=== PATIENT | male | born 1985 | race African-American/Black ===

== ENCOUNTER 2021-04-15 11:01 | Outpatient (REF) | payer OTHER, SELFPAY ==
[2021-04-15 11:05] LABS: MANUAL DIFF FLAG NO
[2021-04-15 12:00] LABS: Basophils Absolute Auto 0.1 X10*3/uL (0.0-0.2); Basophils Percent Auto 0.9 % (0-2); Eosinophils Absolute Auto 0.4 X10*3/uL (0.0-0.4); Eosinophils Percent Auto 5.1 % (0-4); Hematocrit 43.5 % (42.0-52.0); Hemoglobin 14.4 g/dl (14.0-18.0); Imm Gran Abs Auto 0.02 X10*3/uL (0.00-0.03); Imm Gran Pct Auto 0.3 % (0.0-0.4); Lymphocytes Absolute Auto 2.8 X10*3/uL (1.2-4.9); Lymphocytes Percent Auto 40.6 % (20-40); Mean Corpuscular HGB Conc 33.1 g/dl (31.0-36.0); Mean Corpuscular Hemoglobin 29.1 pg (27.0-33.0); Mean Corpuscular Volume 88.1 fL (80.0-98.0); Mean Platelet Volume 9.8 fL (9.4-12.4); Monocytes Absolute Auto 0.6 X10*3/uL (0.1-1.2); Monocytes Percent Auto 9.4 % (2-11); Neutrophils Percent Auto 43.7 % (45-73); Platelet Count 237 X10*3/uL (160-400); Red Blood Count 4.94 X10*6/uL (4.60-5.80); Red Cell Distribution Width 13.2 % (11.0-16.0); White Blood Count 6.8 X10*3/uL (4.8-10.8)
[2021-04-15 12:13] LABS: Alanine Aminotransferase 70 U/L (0-40); Albumin Level 4.5 g/dL (3.5-5.0); Alkaline Phosphatase 47 U/L (39-117); Anion Gap 12 (12-20); Appearance Urine CLEAR; Aspartate Amino Transferase 39 U/L (5-37); Bilirubin Total 0.4 mg/dL (0.0-1.0); Blood Urea Nitrogen 13 mg/dL (9-16); Calcium 9.8 mg/dL (8.4-10.2); Carbon Dioxide 27 mmol/L (22-29); Chloride 105 mmol/L (96-108); Cholesterol 246 mg/dL; Color Urine YELLOW; Estimated Glomerular Filt Rate > 60; Glucose Random 183 mg/dL (60-115); Glucose Urine UA NEG (NEG); HDL Cholesterol 45 mg/dL; LDL Cholesterol Calculated 164 mg/dl; Leukocyte Esterase Urine NEG (NEG); Nitrite Urine NEG (NEG); PH 5.5 (5.0-8.0); Potassium 4.4 mmol/L (3.3-5.1); Sodium 140 mmol/L (135-145); Specific Gravity - Urine >= 1.030 (1.005-1.025); Total Protein 7.4 g/dL (6.5-8.0); Triglycerides 188 mg/dL; Urine Blood NEG (NEG); Urine Ketones NEG (NEG); Urine Protein NEG (NEG-TRACE)
[2021-04-15 12:58] LABS: Reflex LDLD? No
== END 2021-04-15 11:02 | disposition home or self-care (01) ==
LOC: HO.LNP 11:01
PROVIDERS: Visit Provider Internal Medicine
DX: Z00.00 Encounter for general adult medical examination without abnormal findings (principal); R03.0 Elevated blood-pressure reading, without diagnosis of hypertension; D72.820 Lymphocytosis (symptomatic)
CPT/HCPCS: 80053; 80061; 81003; 85025

== ENCOUNTER → 2021-04-21 08:17 | Outpatient (BNVA) | payer SELFPAY | PROVIDERS: PCP Internal Medicine | DX: Z11.1 Encounter for screening for respiratory tuberculosis (principal) ==

== ENCOUNTER 2022-09-02 11:37 | Outpatient (REF) | payer SELFPAY ==
[2022-09-02 11:40] LABS: MANUAL DIFF FLAG NO
[2022-09-02 11:49] LABS: Appearance Urine Cloudy; Color Urine Dark Yellow; Glucose Urine UA Negative (Negative); Leukocyte Esterase Urine Negative (Negative); Nitrite Urine Negative (Negative); PH 5.5 (5.0-9.0); Specific Gravity - Urine >= 1.030 (1.005-1.025); UMIC TRIGGER UACC YES; Urine Blood Negative (Negative); Urine Ketones Trace mg/dL (Negative); Urine Protein 30 (1+) mg/dL (Neg-Trace)
[2022-09-02 11:50] LABS: Basophils Absolute Auto 0.1 X10*3/uL (0.0-0.2); Basophils Percent Auto 0.9 % (0-2); Eosinophils Absolute Auto 0.3 X10*3/uL (0.0-0.4); Hematocrit 44.3 % (42.0-52.0); Hemoglobin 14.9 g/dl (14.0-18.0); Imm Gran Abs Auto 0.02 X10*3/uL (0.00-0.03); Imm Gran Pct Auto 0.3 % (0.0-0.4); Lymphocytes Absolute Auto 3.1 X10*3/uL (1.2-4.9); Mean Corpuscular HGB Conc 33.6 g/dl (31.0-36.0); Mean Corpuscular Hemoglobin 29.9 pg (27.0-33.0); Mean Corpuscular Volume 88.8 fL (80.0-98.0); Monocytes Absolute Auto 0.7 X10*3/uL (0.1-1.2); Monocytes Percent Auto 10.6 % (2-11); Neutrophils Absolute Auto 2.7 x10*3/uL (2.0-8.3); Neutrophils Percent Auto 39.2 % (45-73); Platelet Count 262 X10*3/uL (160-400); Red Blood Count 4.99 X10*6/uL (4.60-5.80); Red Cell Distribution Width 12.8 % (11.0-16.0)
[2022-09-02 11:52] LABS: Bacteria Urine None Seen (None Seen); RBC Urine 0-2 /HPF (0-2); Squamous Epithelial Cell Urine 0-2 /HPF (0-2); WBC Urine 0-5 /HPF (0-5)
[2022-09-02 12:32] LABS: Alanine Aminotransferase 46 U/L (0-40); Albumin Level 4.7 g/dL (3.5-5.0); Alkaline Phosphatase 53 U/L (39-117); Anion Gap 15 (12-20); Aspartate Amino Transferase 30 U/L (5-37); Bilirubin Total 0.5 mg/dL (0.0-1.0); Blood Urea Nitrogen 16 mg/dL (9-16); Calcium 9.8 mg/dL (8.4-10.2); Carbon Dioxide 23 mmol/L (22-29); Chloride 109 mmol/L (96-108); Cholesterol 245 mg/dL; Estimated Glomerular Filt Rate > 60; Glucose Fasting 137 mg/dL (60-99); HDL Cholesterol 49 mg/dL; LDL Cholesterol Calculated 167 mg/dl; Sodium 143 mmol/L (135-145); Total Protein 7.5 g/dL (6.5-8.0); Triglycerides 149 mg/dL
== END 2022-09-02 11:38 | disposition home or self-care (01) ==
LOC: HO.LNP 11:37
PROVIDERS: Visit Provider Internal Medicine
DX: Z00.00 Encounter for general adult medical examination without abnormal findings (principal); R03.0 Elevated blood-pressure reading, without diagnosis of hypertension; D72.820 Lymphocytosis (symptomatic); E11.9 Type 2 diabetes mellitus without complications
CPT/HCPCS: 80053; 80061; 81001; 85025

== ENCOUNTER 2022-09-08 11:19 | Outpatient (REF) | payer SELFPAY | END 2022-09-08 11:20 | disposition home or self-care (01) | LOC: HO.LNP 11:19 | PROVIDERS: Visit Provider Internal Medicine | DX: Z12.5 Encounter for screening for malignant neoplasm of prostate (principal); R80.0 Isolated proteinuria | CPT/HCPCS: 81001; 84153 ==

== ENCOUNTER 2023-09-12 10:52 | Outpatient (REF) | payer SELFPAY ==
[2023-09-12 10:57] LABS: MANUAL DIFF FLAG NO
[2023-09-12 11:39] LABS: Basophils Percent Auto 0.6 % (0-2); Eosinophils Absolute Auto 0.1 X10*3/uL (0.0-0.4); Eosinophils Percent Auto 1.7 % (0-4); Hematocrit 45.7 % (42.0-52.0); Hemoglobin 15.7 g/dl (14.0-18.0); Imm Gran Abs Auto 0.01 X10*3/uL (0.00-0.03); Imm Gran Pct Auto 0.2 % (0.0-0.4); Lymphocytes Absolute Auto 1.6 X10*3/uL (1.2-4.9); Lymphocytes Percent Auto 25.1 % (20-40); Mean Corpuscular HGB Conc 34.4 g/dl (31.0-36.0); Mean Corpuscular Hemoglobin 30.3 pg (27.0-33.0); Mean Corpuscular Volume 88.1 fL (80.0-98.0); Mean Platelet Volume 9.9 fL (9.4-12.4); Monocytes Absolute Auto 0.9 X10*3/uL (0.1-1.2); Monocytes Percent Auto 13.5 % (2-11); Neutrophils Absolute Auto 3.8 x10*3/uL (2.0-8.3); Neutrophils Percent Auto 58.9 % (45-73); Platelet Count 216 X10*3/uL (160-400); Red Blood Count 5.19 X10*6/uL (4.60-5.80); Red Cell Distribution Width 12.7 % (11.0-16.0); White Blood Count 6.5 X10*3/uL (4.8-10.8)
[2023-09-12 11:45] LABS: Appearance Urine Clear; Color Urine Dark Yellow; Glucose Urine UA Negative (Negative); Leukocyte Esterase Urine Negative (Negative); Nitrite Urine Negative (Negative); PH 5.5 (5.0-9.0); Specific Gravity - Urine >= 1.030 (1.005-1.025); UMIC TRIGGER UACC YES; Urine Blood Negative (Negative); Urine Ketones Trace mg/dL (Negative); Urine Protein 30 (1+) mg/dL (Neg-Trace)
[2023-09-12 11:50] LABS: Bacteria Urine None Seen (None Seen); Hyaline Casts Urine 0-2 /LPF (0-2); RBC Urine 0-2 /HPF (0-2); Squamous Epithelial Cell Urine 0-2 /HPF (0-2); WBC Urine 0-5 /HPF (0-5)
[2023-09-12 12:04] LABS: Alanine Aminotransferase 32 U/L (0-40); Albumin Level 4.5 g/dL (3.5-5.0); Alkaline Phosphatase 65 U/L (39-117); Anion Gap 16 (12-20); Aspartate Amino Transferase 30 U/L (5-37); Bilirubin Total 0.7 mg/dL (0.0-1.0); Blood Urea Nitrogen 13 mg/dL (9-16); Calcium 9.7 mg/dL (8.4-10.2); Carbon Dioxide 25 mmol/L (22-29); Chloride 104 mmol/L (96-108); Cholesterol 219 mg/dL (<200); Estimated Glomerular Filt Rate > 60; Glucose Fasting 119 mg/dL (60-99); HDL Cholesterol 52 mg/dL (>40); LDL Cholesterol Calculated 150 mg/dL (<100); Potassium 3.8 mmol/L (3.3-5.1); Sodium 141 mmol/L (135-145); Total Protein 7.6 g/dL (6.5-8.0); Triglycerides 86 mg/dL (<150)
[2023-09-12 12:18] LABS: Microalbum/Creatinine Ratio Ur 7.7 ug/mg cr (<30)
== END 2023-09-12 10:53 | disposition home or self-care (01) ==
LOC: HO.LNP 10:52
PROVIDERS: Visit Provider Internal Medicine
DX: R03.0 Elevated blood-pressure reading, without diagnosis of hypertension (principal); D72.820 Lymphocytosis (symptomatic); E11.9 Type 2 diabetes mellitus without complications; Z12.5 Encounter for screening for malignant neoplasm of prostate
CPT/HCPCS: 80053; 80061; 81001; 82043; 82570; 84153; 85025

== ENCOUNTER → 2023-09-15 15:18 | Outpatient (BNVA) | payer SELFPAY | PROVIDERS: PCP Internal Medicine | DX: R76.11 Nonspecific reaction to tuberculin skin test without active tuberculosis (principal) ==

== ENCOUNTER 2024-03-28 11:15 | Outpatient (REF) | payer OTHER, SELFPAY ==
[2024-03-28 11:51] LABS: Estimated Average Glucose 117 mg/dL; Hemoglobin A1C 144.5691 umol/L; Hemoglobin A1c % 5.7 % (<6.0); Total Hemoglobin (HGBA1C) 3773.3804 umol/L
[2024-03-28 12:20] LABS: Alanine Aminotransferase 27 U/L (0-40); Albumin Level 4.4 g/dL (3.5-5.0); Alkaline Phosphatase 67 U/L (39-117); Aspartate Amino Transferase 28 U/L (5-37); Bilirubin Direct 0.2 mg/dL (0.0-0.5); Bilirubin Total 0.5 mg/dL (0.0-1.0); Cholesterol 190 mg/dL (<200); Glucose Fasting 130 mg/dL (60-99); HDL Cholesterol 51 mg/dL (>40); LDL Cholesterol Calculated 127 mg/dL (<100); Total Protein 7.7 g/dL (6.5-8.0); Triglycerides 62 mg/dL (<150)
[2024-03-28 12:25] LABS: Reflex LDLD? No
== END 2024-03-28 11:16 | disposition home or self-care (01) ==
LOC: HO.LNP 11:15
PROVIDERS: Visit Provider Internal Medicine
DX: E11.9 Type 2 diabetes mellitus without complications (principal); E78.00 Pure hypercholesterolemia, unspecified
CPT/HCPCS: 80061; 80076; 82947; 83036

== ENCOUNTER 2024-09-16 11:05 | Outpatient (REF) | payer OTHER, SELFPAY ==
[2024-09-16 11:08] LABS: MANUAL DIFF FLAG NO
[2024-09-16 11:39] LABS: Appearance Urine Clear; Glucose Urine UA Negative (Negative); PH 5.5 (5.0-9.0); Specific Gravity - Urine 1.025 (1.005-1.025)
[2024-09-16 11:40] LABS: Hematocrit 42.9 % (42.0-52.0); Hemoglobin 14.9 g/dl (14.0-18.0); Imm Gran Abs Auto 0.01 X10*3/uL (0.00-0.03); Imm Gran Pct Auto 0.2 % (0.0-0.4); Lymphocytes Absolute Auto 3.0 X10*3/uL (1.2-4.9); Mean Corpuscular HGB Conc 34.7 g/dl (31.0-36.0); Mean Corpuscular Hemoglobin 30.3 pg (27.0-33.0); Mean Corpuscular Volume 87.2 fL (80.0-98.0); NRBC Abs Auto 0.000 X10*3/uL (0.0-0.012); NRBC Pct Auto 0.0 /100WBC (0.0-0.2); Platelet Count 236 X10*3/uL (160-400); Red Blood Count 4.92 X10*6/uL (4.60-5.80); White Blood Count 6.3 X10*3/uL (4.8-10.8)
[2024-09-16 11:56] LABS: Alanine Aminotransferase 32 U/L (0-40); Albumin Level 4.5 g/dL (3.5-5.0); Alkaline Phosphatase 57 U/L (39-117); Anion Gap 13 (12-20); Aspartate Amino Transferase 40 U/L (5-37); Blood Urea Nitrogen 14 mg/dL (9-16); Calcium 9.1 mg/dL (8.4-10.2); Carbon Dioxide 26 mmol/L (22-29); Chloride 108 mmol/L (96-108); Cholesterol 211 mg/dL (<200); Estimated Glomerular Filt Rate > 60; HDL Cholesterol 58 mg/dL (>40); Potassium 4.1 mmol/L (3.3-5.1); Sodium 143 mmol/L (135-145); Total Protein 7.1 g/dL (6.5-8.0); Triglycerides 168 mg/dL (<150)
[2024-09-16 11:58] LABS: Hemoglobin A1C 155.6954 umol/L; Total Hemoglobin (HGBA1C) 3948.4725 umol/L
--- OUTSIDE RECORDS SUMMARY | 2024-09-16 12:08 | XMS_ITS | Patient Health Record ---
Author Organization Taras Friend MD Address [address] [place], [place] [id number] Care Team Providers Care General Office Dispatcher Name Role Phone Taras Friend Primary Care Provider [phone] Allergies No Known Allergies Results Component Value Reference Range Notes Hold Gold Reviewed date:03/28/2024 05:38:41 PM Interpretation: Performing Lab:[facility], [address] [place] [phone] Notes/Report: Hold Gold See Note Specimen held untested for 24 hours; Call to request Chemistry testing. Liver Panel Reviewed date:03/28/2024 12:27:46 PM Interpretation: Performing Lab:[facility], [address] [place] [phone] Notes/Report: Bilirubin Total 0.5 0.0-1.0 mg/dL Bilirubin Direct 0.2 0.0-0.5 mg/dL Aspartate Amino Transferase 28 5-37 U/L Alanine Aminotransferase 27 0-40 U/L Total Protein 7.7 6.5-8.0 g/dL Albumin Level 4.4 3.5-5.0 g/dL Alkaline Phosphatase 67 39-117 U/L Glucose Fasting Reviewed date:03/28/2024 12:56:31 PM Interpretation: Performing Lab:[facility], [address] [place] [phone] Notes/Report: Glucose Fasting 130 60-99 mg/dL A fasting glucose of 126 mg/dl or greater on more than one occasion is considered diagnostic of diabetes. Lipid Panel with Reflex Reviewed date:03/28/2024 12:56:24 PM Interpretation: Performing Lab:[facility], [address] [place] [phone] Notes/Report: Triglycerides 62 <150 mg/dL Desirable Triglyceride: less than 150 mg/dL Borderline High Triglyceride 150-199 mg/dL High Triglyceride: 200-499 mg/dL Very High Triglyceride: greater than or equal to 5OO mg/dL Cholesterol 190 <200 mg/dL Desirable Cholesterol: less than 200 mg/dL Borderline High Cholesterol: 200-239 mg/dL High Cholesterol: greater than 239 mg/dL LDL Cholesterol Calculated 127 <100 mg/dL Desirable LDL: less than 100 mg/dL Near Optimal/Above Optimal LDL: 110-129 mg/dL Borderline High LDL: 130-159 mg/dL High LDL: 160-189 mg/dL Very High LDL: greater than or equal to 190 mg/dL HDL Cholesterol 51 >40 mg/dL Desirable HDL: greater than 40 mg/dL Note: This HDL assay may give artificially low results in patients with liver disease. Hemoglobin A1c Reviewed date:03/28/2024 12:09:15 PM Interpretation: Performing Lab:[facility], [address] [place] [phone] Notes/Report: Hemoglobin A1c % 5.7 <6.0 % Hemoglobin A1C Reference Range Adults: 4.8 - 6.0 % Non diabetic: < 6.0 % Goal: < 7.0 % Additional Action Suggested: > 8.0 % Note: Hemoglobin A1c results are invalid for patients with abnormal amounts of HbF. Blood transfusions may impact the HbA1c concentration in the patient sample. Estimated Average Glucose 117 eAG = Estimated average glucose which is %A1C expressed as average glucose, using the formula of the [id number] Average Glucose study (ADAG), Diabetes Care, Vol.31,#8, Oct. 2007 Complete Blood Count Auto Di ff (Not yet reviewed by provider) Interpretation: Performing Lab:[facility], [address] [place] [phone] Notes/Report: White Blood Count 6.3 4.8-10.8 X10*3/uL Red Blood Count 4.92 4.60-5.80 X10*6/uL Hemoglobin 14.9 14.0-18.0 g/dl Hematocrit 42.9 42.0-52.0 % Mean Corpuscular Volume 87.2 80.0-98.0 fL Mean Corpuscular Hemoglobin 30.3 27.0-33.0 pg Mean Corpuscular HGB Conc 34.7 31.0-36.0 g/dl Red Cell Distribution Width 13.3 11.0-16.0 % Platelet Count 236 160-400 X10*3/uL Mean Platelet Volume 9.6 9.4-12.4 fL Neutrophils Percent Auto 37.1 45-73 % Imm Gran Pct Auto 0.2 0.0-0.4 % Lymphocytes Percent Auto 48.3 20-40 % Monocytes Percent Auto 9.7 2-11 % Eosinophils Percent Auto 3.7 0-4 % Basophils Percent Auto 1.0 0-2 % NRBC Pct Auto 0.0 0.0-0.2 /100WBC Neutrophils Absolute Auto 2.3 2.0-8.3 x10*3/u L Imm Gran Abs Auto 0.01 0.00-0.03 X10*3/uL Lymphocytes Absolute Auto 3.0 1.2-4.9 X10*3/u L Monocytes Absolute Auto 0.6 0.1-1.2 X10*3/uL Eosinophils Absolute Auto 0.2 0.0-0.4 X10*3/u L Basophils Absolute Auto 0.1 0.0-0.2 X10*3/uL NRBC Abs Auto 0.000 0.0-0.012 X10*3/uL Comprehensive [place]. Panel Fa st (Not yet reviewed by provider) Interpretation: Performing Lab:[facility], [address] [place] [phone] Notes/Report: Sodium 143 135-145 mmol/L Potassium 4.1 3.3-5.1 mmol/L Chloride 108 96-108 mmol/L Carbon Dioxide 26 22-29 mmol/L Anion Gap 13 12-20 Blood Urea Nitrogen 14 9-16 mg/dL Creatinine 0.95 0.5-1.4 mg/dL Estimated Glomerular Filt Rate > 60 Chronic Kidney Disease: Estimated GFR < 60 mL/min/1.73m2 Severe Kidney Disease: Estimated GFR < 15 mL/min/1.73m2 Glucose Fasting 101 60-99 mg/dL A fasting glucose from 100-125 mg/dl is considered impaired (pre-diabetes). Calcium 9.1 8.4-10.2 mg/dL Bilirubin Total 0.6 0.0-1.0 mg/dL Aspartate Amino Transferase 40 5-37 U/L Alanine Aminotransferase 32 0-40 U/L Total Protein 7.1 6.5-8.0 g/dL Albumin Level 4.5 3.5-5.0 g/dL Alkaline Phosphatase 57 39-117 U/L Lipid Panel (Not yet reviewe d by provider) Interpretation: Performing Lab:[address] [phone] Notes/Report: Triglycerides 168 <150 mg/dL Desirable Triglyceride: less than 150 mg/dL Borderline High Triglyceride 150-199 mg/dL High Triglyceride: 200-499 mg/dL Very High Triglyceride: greater than or equal to 5OO mg/dL Cholesterol 211 <200 mg/dL Desirable Cholesterol: less than 200 mg/dL Borderline High Cholesterol: 200-239 mg/dL High Cholesterol: greater than 239 mg/dL LDL Cholesterol Calculated 120 <100 mg/dL Desirable LDL: less than 100 mg/dL Near Optimal/Above Optimal LDL: 110-129 mg/dL Borderline High LDL: 130-159 mg/dL High LDL: 160-189 mg/dL Very High LDL: greater than or equal to 190 mg/dL HDL Cholesterol 58 >40 mg/dL Desirable HDL: greater than 40 mg/dL Note: This HDL assay may give artificially low results in patients with liver disease. Hemoglobin A1c (Not yet revi ewed by provider) Interpretation: Performing Lab:[address] [phone] Notes/Report: Hemoglobin A1c % 5.8 <6.0 % Hemoglobin A1C Reference Range Adults: 4.8 - 6.0 % Non diabetic: < 6.0 % Goal: < 7.0 % Additional Action Suggested: > 8.0 % Note: Hemoglobin A1c results are invalid for patients with abnormal amounts of HbF. Blood transfusions may impact the HbA1c concentration in the patient sample. Estimated Average Glucose 120 eAG = Estimated average glucose which is %A1C expressed as average glucose, using the formula of the [id number] Average Glucose study (ADAG), Diabetes Care, Vol.31,#8, 2007 UA ClnCatch+Micro w/rflx Cul t (Not yet reviewed by provider) Interpretation: Performing Lab:[address], [place] [phone] Notes/Report: Urine, Clean Catch Color Urine Yellow Appearance Urine Clear PH 5.5 5.0-9.0 Glucose Urine UA Negative Negative mg/dL Urine Blood Negative Negative Specific [place] - Urine 1.025 1.005-1.025 Urine Protein Trace Neg-Trace mg/dL Urine Ketones Trace Negative mg/dL Nitrite Urine Negative Negative Leukocyte Esterase Urine Negative Negative RBC Urine 0-2 0-2 /HPF WBC Urine 0-5 0-5 /HPF Squamous Epithelial Cell Urine 0-2 0-2 /HPF Bacteria Urine None Seen None Seen Hyaline Casts Urine 0-2 0-2 /LPF Reason For Referral No Information Medications Medication SIG (Take, Route, Frequency, Duration) Notes Start Date End Date Status Atorvastatin Calcium 40 MG 1 tablet Oral ly Once a day 08/10/2023 Active Immunizations Vaccine Route Administration Date Status Comme nts SARS-COV-2 Moderna Unknown 11/02/2020 Administered SARS-COV-2 Moderna Unknown 11/30/2020 Administered Fluarix Quadrivalent IM Intramuscular 04/19/2021 Administe red Fluarix Quadrivalent Unknown 03/15/2016 Refused Fluarix Quadrivalent Unknown 05/02/2017 Refused Fluarix Quadrivalent Unknown 05/21/2018 Refused TDaP Unknown 05/21/2018 Refused Social History Tobacco Use: Social History Observation Description Date Details (start date - stop date) Never Smoker NA - NA Tobacco Use/Smoking Question Answer Notes Patient is a nonsmoker Additional Findings: Tobacco Non-User Cu rrent non-smoker, currently using no form of tobacco Alcohol Screen Question Answer Notes Did you have a drink contain ing alcohol in the past year? Yes How often did you have a dri nk containing alcohol in the past year? Monthly or less (1 point) How many drinks did you have on a typical day when you were drinking in the past year? 1 or 2 drinks (0 point) How often did you have 6 or more drinks on one occasion in the past year? Never (0 point) Points 1 Interpretation Negative Problems Problem Type SNOMED Code ICD Code Onset Dates Problem Status W/U Status Risk Notes Problem Lymphocytosis (62268790) Lymphocytosis (D72.820) Active confirmed Problem Benign essential hypertension (1703096) Benign essential hypertension (I10) Active confirmed Problem 132271443 Borderline hypertension (R03.0) Active confirmed Problem 691489724 Cervical disc di sease (M50.90) Active confirmed Problem 74845068 Hypercholesterol emia (E78.00) Active confirmed Problem 220459595 BMI 30.0-30.9,ad ult (Z68.30) Active confirmed Problem Type II diabetes mellitus without complication (996851438) Controlled type 2 diabetes mellitus without complication, without long-term current use of insulin (E11.9) Active confirmed Problem [id number] Plantar wart o f right foot (B07.0) Active confirmed Encounters Encounter Location Date Provider Diagnosis Taras Friend MD [address] [place] [phone] 03/28/2024 Taras Friend Controlled type 2 di abetes mellitus without complication, without long-term current use of insulin E11.9 and Hypercholesterolemia E78.[address] MD [address] [place] [id number] 09/16/2024 Taras Friend Blood tests for rout ine general physical examination Z00.00 ; Benign essential hypertension I10 ; Controlled type 2 diabetes mellitus without complication, without long-term current use of insulin E11.9 ; Hypercholesterolemia E78.00 and Lymphocytosis D72.820 Assessments Encounter Date Diagnosis (ICD Code) Assessment Notes Treatment Notes Treatment Clinical Notes Section Notes 03/28/2024 Controlled type 2 diabetes mellitus without complication, without long-term current use of insulin (ICD-10 - E11.9) 03/28/2024 Hypercholesterolemia (ICD-10 - E78.00) 09/16/[address] ine general physical examination (ICD-10 - Z00.00) 09/16/2024 Benign essential hypertension (ICD-10 - I10) 09/16/2024 Controlled type 2 diabetes mellitus without complication, without long-term current use of insulin (ICD-10 - E11.9) 09/16/2024 Hypercholesterolemia (ICD-10 - E78.00) 09/16/2024 Lymphocytosis (ICD-1 0 - D72.820) Plan Of Treatment Pending Test Test Name Order Date Complete Blood Count Auto Diff Comprehensive [place]. Panel Fast Lipid Panel 09/16/2024 PSA,Total (Free>4and<10) 09/16/2024 Microalbumin, Random 09/16/2024 Hemoglobin A1c 09/16/2024 UA ClnCatch+Micro w/rflx Cult 09/16/2024 Next Appt Details Provider Name:Taras longr, 09/19/2024 08:00:00 AM, [address] [place] [address], [address], [place], [place], [id number], Insurance Providers Payer Name Payer Address Payer Phone Subscriber Number Group Number Insured Name Patient Relationship to Insured Coverage Start Date Coverage End Date [facility] [address] [facility] [address] [facility] [place] [phone] [id number] BRENNEN BRYAN Self - patient is the insured
[2024-09-16 12:17] LABS: PSA,Total (Free>4and<10) 1.18 ng/mL (0.00-4.00)
[2024-09-16 12:24] LABS: Microalbum/Creatinine Ratio Ur 6.4 ug/mg cr (<30)
== END 2024-09-16 11:06 | disposition home or self-care (01) ==
LOC: HO.LNP 11:05
PROVIDERS: Visit Provider Internal Medicine
DX: Z00.00 Encounter for general adult medical examination without abnormal findings (principal); I10 Essential (primary) hypertension; E11.9 Type 2 diabetes mellitus without complications; E78.00 Pure hypercholesterolemia, unspecified; D72.820 Lymphocytosis (symptomatic)
CPT/HCPCS: 80053; 80061; 81001; 82043; 82570; 83036; 84153; 85025